=== PATIENT | male | born 2000 | race Caucasian/White ===

== ENCOUNTER 2021-11-16 09:54 | Emergency (ER) | payer OTHER ==
[2021-11-16 10:07] VITALS: BP 167/105; PULSE 116; O2SAT 99
[2021-11-16] MEDS ORDERED: XYLOCAINE 2% HCL 20 ML MDV ONE (10:15)
[2021-11-16] MEDS ORDERED: XYLOCAINE 1% HCL 20 ML MDV IJ ONE (10:21)
[2021-11-16] MEDS ORDERED: XYLOCAINE 1% HCL 20 ML MDV ONE (10:22)
[2021-11-16] MEDS ORDERED: Adacel Vial IM ONE ×2 (10:22)
[2021-11-16] MEDS ORDERED: XYLOCAINE 2% HCL 20 ML MDV IJ ONE (10:43)
--- NOTE | 2021-11-16 11:14 | ERPHSYRPT ---
- History of Present Illness Time Seen by Provider: 11/16/21 10:09 Source: patient Exam Limitations: no limitations Patient Subjective Stated Complaint: Laceration to right hand Triage Nursing Assessment: Patient ambulated back to ED and transferred self to bed. Patient A+O X3. Patient's skin pink, warm and dry. Patient complains of laceration to right hand. Patient states he was remodeling a home when his hand went through an old glass window causing lacerations. Patient has two lacerations noted to right hand by thumb/wrist area. 3cmX 1cm distal and 10cm X 1cm proximal. Patient complains of pain 10/04. Physician History: 21 years old right-handed dominant male presented in the ER with chief complaint of multiple laceration right wrist and hand after he accidentally hit the glass window which he was not aware of. Lacerations are more closer to thumb/index area and wrist. Intact movements at the thumb and fingers. Unsure about tetanus status. There was bleeding initially but fairly controlled on applying pressure. Moderate intensity sharp pain with minimal movements and palpation and better with being still. Occurred: just prior to arrival Method of Injury: incised Quality: sharpness Severity of Pain-Max: moderate Severity of Pain-Current: moderate Extremities Pain Location: thumb: right Modifying Factors: Improves With: immobilization. Worsens With: movement Allergies/Adverse Reactions: No Known Drug Allergies Allergy (Unverified 11/16/21 10:00) Hx Tetanus, Diphtheria Vaccination/Date Given: No Hx Influenza Vaccination/Date Given: No Hx Pneumococcal Vaccination/Date Given: No Immunizations Up to Date: Yes Travel Risk - International Travel Have you traveled outside of the country in past 3 weeks: No - Coronavirus Screening Are you exhibiting any of the following symptoms?: No Close contact with a COVID-19 positive Pt in past 14-21 Days: No - Vaccine Status Have you recieved a Covid-19 vaccination: No - Review of Systems Constitutional: No Symptoms Eyes: No Symptoms Respiratory: No Symptoms Cardiac: No Symptoms Genitourinary Symptoms: No Symptoms Musculoskeletal: Injury Skin: Skin Lesions Neurological: No Symptoms Psychological: No Symptoms Endocrine: No Symptoms Hematologic/Lymphatic: No Symptoms Immunological/Allergic: No Symptoms - Past Medical History Pertinent Past Medical History: No Neurological History: No Pertinent History ENT History: No Pertinent History Cardiac History: No Pertinent History Respiratory History: No Pertinent History Endocrine Medical History: No Pertinent History Musculoskeletal History: No Pertinent History GI Medical History: No Pertinent History History: No Pertinent History Psycho-Social History: No Pertinent History Male Reproductive Disorders: No Pertinent History - Past Surgical History Past Surgical History: No Neuro Surgical History: No Pertinent History Cardiac: No Pertinent History Respiratory: No Pertinent History Gastrointestinal: No Pertinent History Genitourinary: No Pertinent History Musculoskeletal: No Pertinent History Male Surgical History: No Pertinent History - Social History Smoking Status: Current every day smoker How long have you smoked: years Exposure to second hand smoke: Yes Drug Use: marijuana Patient Lives Alone: Yes - Nursing Vital Signs Nursing Vital Signs: Initial Vital Signs Temperature 97.9 F 11/16/21 10:01 Pulse Rate 116 H 11/16/21 10:01 Respiratory Rate 18 11/16/21 10:01 Blood Pressure 167/105 11/16/21 10:01 O2 Sat by Pulse Oximetry 99 11/16/21 10:01 Pain Scale Pain Intensity 2 - Physical Exam General Appearance: no apparent distress, alert Neck Exam: normal inspection, full range of motion Cardiovascular/Respiratory Exam: normal breath sounds, tachycardia Elbow/Forearm Exam: normal inspection, non-tender, no evidence of injury, normal ROM Hand Exam: laceration (Laceration on the radial aspect of dorsum of hand carpentry of almost 6 cm, and another laceration around anatomical snuffbox area and around wrist 3 cm and 2 cm. Intact movements at index and thumb.), soft tissue tenderness Neuro/Tendon Exam: normal sensation, normal motor functions, normal tendon functions Mental Status Exam: alert, oriented x 3, cooperative Skin Exam: normal color SpO2 Interpretation: normal SpO2: 99 O2 Delivery: Room Air Procedures - Laceration/Wound Repair Right Dorsal Hand Time of Procedure: 10:30 Wound Location: Right Wound Length (cm): 10 Wound's Depth, Shape: into muscle, irregular, flap Wound Explored: clean Irrigated: Yes Hibiclens Prep: Yes Anesthesia: 2% Lidocaine Volume Anesthetic (ccs): 9 Wound Repaired With: sutures Suture Size/Type: 4-0, nylon Number of Sutures: 18 Layer Closure?: No Sterile Dressing Applied?: Yes Splint Applied?: Yes Type of Splint Applied: Aluminum readymade Left Finger Wound Location: Left, hand Wound Length (cm): 1 Wound's Depth, Shape: superficial (Fourth digit middle phalanx) Wound Explored: clean Irrigated: Yes Hibiclens Prep: Yes Wound Repaired With: Steri-strips, Dermabond Sterile Dressing Applied?: Yes Ordered Tests: Medication Summary Discontinued Medications Generic Name Dose Route Start Last Admin Trade Name Adan PRN Reason Stop Dose Admin Diphtheria/Tetanus/Acell Pertussis 0.5 ml 11/16/21 10:22 11/16/21 10:24 Tdap --Diph,Pertuss(Acell),Tet Vac/Pf 0.5 Ml Vial IM 11/16/21 10:23 0.5 ml .ONCE ONE Administration Diphtheria/Tetanus/Acell Pertussis Confirm 11/16/21 10:22 Tdap --Diph,Pertuss(Acell),Tet Vac/Pf 0.5 Ml Vial Administered 11/16/21 1 0:23 Dose 0.5 ml IM .STK-MED ONE Lidocaine HCl Confirm 11/16/21 10:15 Lidocaine Hcl 2% 20 Ml Mdv Administered 11/16/21 10:16 Dose 10 ml .ROUTE .STK-MED ONE Lidocaine HCl 10 ml 11/16/21 10:21 11/16/21 10:43 Lidocaine Hcl 1% 20 Ml Mdv 20 Ml Ml IJ 11/16/21 10:22 Not Given STAT ONE Lidocaine HCl Confirm 11/16/21 10:22 Lidocaine Hcl 1% 20 Ml Mdv 20 Ml Ml Administered 11/16/21 10:23 Dose 10 ml .ROUTE .STK-MED ONE Lidocaine HCl 10 ml 11/16/21 10:43 11/16/21 10:45 Lidocaine Hcl 2% 20 Ml Mdv IJ 11/16/21 10:44 10 ml STAT ONE Administration - Progress Progress: improved Progress Note: 11/16/21 11:11 All 3 lacerations were repaired, placed in splint. Recommend Tylenol/ibuprofen and outpatient follow-up. Counseled pt/family regarding: diagnosis, need for follow-up - Departure Departure Disposition: Home Clinical Impression: Hand laceration Qualifiers: Encounter type: initial encounter Foreign body presence: without foreign body Laterality: right Qualified Code(s): S61.411A - Laceration without foreign body of right hand, initial encounter Condition: Stable Critical Care Time: No Referrals: DOCTOR,NO FAMILY [Primary Care Provider] - Follow up/PCP as directed KENDALL WATTS MD [ACTIVE STAFF] - Follow Up with PCP/3 days Instructions: Laceration Repair With Stitches (DC) Additional Instructions: Intermittent ice application, keep it elevated, Tylenol/ibuprofen as needed for pain. Avoid exertional activities with your right hand. Follow-up with primary care physician for reevaluation in 2 to 3 days and suture removal in 2 weeks. Return to ER for increasing swelling redness, discharge, fever chills, difficulty movements of fingers/thumb are bluish discoloration of fingertips. Prescriptions: Ibuprofen 600 mg PO Q6HPRN PRN 10 Days #20 tablet PRN Reason: Pain
== END 2021-11-16 11:18 | disposition home or self-care (01) ==
LOC: ED 09:54
DX: S61.411A Laceration without foreign body of right hand, initial encounter (principal); S61.214A Laceration without foreign body of right ring finger without damage to nail, initial encounter; W25.XXXA Contact with sharp glass, initial encounter; Y93.H3 Activity, building and construction; Z72.0 Tobacco use
CPT/HCPCS: 12004; 90471; 90715; 96372; 99284; A4570

== ENCOUNTER 2024-08-27 03:34 | Emergency (ER) | payer MEDICAID, OTHER ==
[2024-08-27 03:51] VITALS: BP 155/96; RESP 18; TEMP 97.5; O2SAT 100
[2024-08-27 03:56] VITALS: PULSE 75
[2024-08-27] MEDS ORDERED: Erythromycin 1 GM ONE (04:01)
[2024-08-27] MEDS ORDERED: TETRACAINE 0.5% STERI-UNIT SOL OP ONE (04:01)
[2024-08-27] MEDS ORDERED: Fluor-I-Strip/Ful-Flo OP ONE (04:04)
[2024-08-27] MEDS: TETRACAINE 0.5% STERI-UNIT SOL OP STA (04:11)
[2024-08-27] MEDS: Fluor-I-Strip/Ful-Flo OP ONE (04:11)
[2024-08-27] MEDS: Erythromycin 1 GM OP STA (04:11)
[2024-08-27] MEDS ORDERED: MOTRIN 600 MG ONE (04:21)
[2024-08-27] MEDS: MOTRIN 600 MG PO ONE (04:22)
[2024-08-27] MEDS ORDERED: Eye-Stream Solution ONE (04:25)
--- NOTE | 2024-08-27 04:25 | ERPHSYRPT ---
- History of Present Illness Time Seen by Provider: 08/27/24 04:00 Source: patient Exam Limitations: no limitations Patient Subjective Stated Complaint: c/o eye injury Triage Nursing Assessment: patient brought self to ED with c/o of eye injury/ we lding arc. patient states that he woke up around 0200 today and his eyes were welded shut and watering. 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 Patient rates pain 8/10 in bilat. eyes, states his vision is blurry, and both eyes are burning. PERRLA present, left and right eye is 20/50 per vision acuity exam. slightly hypertensvie, gait steady, patient doesn't appear to be in any distress at this time. Physician History: The patient presents with eye irritation and pain after welding exposure. 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 They did not initially consider the exposure significant until symptoms developed overnight. They describe severe eye irritation and pain, likening the sensation to 'my eyes are on fire,' which began around midnight and worsened by 2 AM. The sensation is described as feeling like 'paper' in their eyes, accompanied by excessive tearing and crying due to discomfort. They have not been using any protective eyewear during the welding activity. Timing/Duration: today Location: bilateral eyes Severity: severe Apparent Injury: no Associated Symptoms: pain, burning, redness, foreign body sensation Visual Assistive Devices: None Chemical Exposure: No Trauma: No Welding Arc/Tanning Bed Exposure: Yes Allergies/Adverse Reactions: No Known Drug Allergies Allergy (Unverified 08/27/24 03:52) Hx Tetanus, Diphtheria Vaccination/Date Given: Yes Hx Influenza Vaccination/Date Given: No Hx Pneumococcal Vaccination/Date Given: No Travel Risk - International Travel Have you traveled outside of the country in past 3 weeks: No - Emerging Infectious Disease Are you exhibiting symptoms associated with any current EIDs: No - Review of Systems All Other Systems: Reviewed and Negative - Past Medical History Pertinent Past Medical History: No Neurological History: No Pertinent History ENT History: No Pertinent History Cardiac History: No Pertinent History Respiratory History: No Pertinent History Endocrine Medical History: No Pertinent History Musculoskeletal History: No Pertinent History GI Medical History: No Pertinent History History: No Pertinent History Psycho-Social History: No Pertinent History Male Reproductive Disorders: No Pertinent History - Past Surgical History Past Surgical History: No Neuro Surgical History: No Pertinent History Cardiac: No Pertinent History Respiratory: No Pertinent History Gastrointestinal: No Pertinent History Genitourinary: No Pertinent History Musculoskeletal: No Pertinent History Male Surgical History: No Pertinent History Other Surgical History: stitches in right hand - Social History Smoking Status: Current every day smoker How long have you smoked: years Exposure to second hand smoke: No Drug Use: none Patient Lives Alone: Yes - Social Determinants of Health Will the patient participate in the screening: Yes Do you worry about a steady place to live?: No Do you have any problems with any of the following?: No known problems In the past 12 months,have you had to go without utilities?: No Transportation Issues: No Has anyone in your support network made you feel unsafe?: No Have you or anyone in your house had to go without enough: No - Nursing Vital Signs Nursing Vital Signs: Initial Vital Signs Temperature 97.5 F 08/27/24 03:41 Pulse Rate 69 08/27/24 03:41 Respiratory Rate 18 08/27/24 03:41 Blood Pressure 155/96 08/27/24 03:41 O2 Sat by Pulse Oximetry 100 08/27/24 03:41 Pain Scale Pain Intensity 8 - Physical Exam General Appearance: no apparent distress Vision Acuity Degree Evaluation Phase: Uncorrected Vision Acuity Right Eye: 20/50 Vision Acuity Left Eye: 20/50 Eye Exam: bilateral eye: conjunctival inflammation SpO2: 100 Procedures - Eye Procedure Time of Procedure: 04:05 Timeout: Performed Tetracaine Drops Administered: Yes Antibiotic Oinment/Drps Admin: both eyes - Course Nursing assessment & vital signs reviewed: Yes Ordered Tests: Medication Summary Discontinued Medications Generic Name Dose Route Start Last Admin Trade Name Freq PRN Reason Stop Dose Admin Erythromycin 1 gm 08/27/24 03:48 08/27/24 04:11 Erythromycin Base 1 Gm Tube Eye Ointment OP 08/27/24 03:49 1 gm STAT STA Administration Erythromycin Confirm 08/27/24 04:01 Erythromycin Base 1 Gm Tube Eye Ointment Administered 08/27/24 04:02 Dose 1 gm .ROUTE .STK-MED ONE Fluorescein Sodium Confirm 08/27/24 04:04 Fluorescein Sodium 1 Mg/Strip Strip Administered 08/27/24 04:05 Dose 1 mg OP .STK-MED ONE Fluorescein Sodium 1 mg 08/27/24 04:10 08/27/24 04:11 Fluorescein Sodium 1 Mg/Strip Strip OP 08/27/24 04:11 1 mg STAT ONE Administration Tetracaine HCl 4 ml 08/27/24 03:47 08/27/24 04:11 Tetracaine Hcl/Pf 4 Ml Bottle OP 08/27/24 03:48 4 ml STAT STA Administration Tetracaine HCl Confirm 08/27/24 04:01 Tetracaine Hcl/Pf 4 Ml Bottle Administered 08/27/24 04:02 Dose 4 ml OP .STK-MED ONE - Progress Progress: improved Progress Note: No injury appreciated on garcia lamp exam, Ibuprofen 600mg given in ER. Erythromycin ointment placed over eyes. Self resolution in 48-72 hours, avoid welding activity. Counseled pt/family regarding: diagnosis Medical Desision Making - Diagnostic Testing Diagnostic test were ordered, analyzed, and reviewed by me: No - Risk of complications The pt has a mod risk of morbidity or mortality based on: Need for prescription drug management - Departure Departure Disposition: Home Clinical Impression: Exposure to welding arc Condition: Good Critical Care Time: No Referrals: DOCTOR,NO FAMILY [Primary Care Provider] - Follow up/PCP as directed Instructions: Eyebright Prescriptions: Ketorolac Trometh 10 mg Tab [TORAdol 10 MG TABLET] 10 mg PO TID PRN 7 Days #21 tablet PRN Reason: Moderate To Severe Pain
[2024-08-27] MEDS: Eye-Stream Solution OP ONE (04:30)
== END 2024-08-27 04:33 | disposition home or self-care (01) ==
LOC: ED 03:34
DX: S05.92XA Unspecified injury of left eye and orbit, initial encounter (principal); S05.91XA Unspecified injury of right eye and orbit, initial encounter; W89.0XXA Exposure to welding light (arc), initial encounter; H57.13 Ocular pain, bilateral; Z79.899 Other long term (current) drug therapy; Z72.0 Tobacco use
CPT/HCPCS: 99281; 99283; A9270-GY